=== PATIENT | male | born 1945 | race Caucasian/White ===

== ENCOUNTER 2019-01-02 10:39 | Inpatient (IN) ==
[2019-01-02 12:07] LABS: BASO# 0.03 X1000 (0.0-0.2); BASO% 0.2 % (0.0-0.8); HEMATOCRIT 44.3 % (42.0-52.0); HEMOGLOBIN 15.1 g/dL (14.0-18.0); IMM GRAN# 0.04 X1000 (0.0-0.04); IMM GRAN% 0.2 % (0.0-0.5); LYMPH# 1.49 X1000 (1.2-3.4); LYMPH% 7.9 % (20.5-51.1); MCH 29.5 PG (27-31); MCHC 34.1 g/dL (33-37); MCV 86.5 FL (81-99); MONO# 1.16 X1000 (0.11-0.59); MONO% 6.2 % (1.7-9.3); MPV 10.1 FL (7.4-10.4); NEUT% 85.5 % (42.2-75.2); PLT 411 X1000 (130-400); RBC 5.12 XMIL (4.7-6.1); RDW 13.5 % (11.5-14.5); WBC 18.82 X1000 (4.8-10.8)
[2019-01-02 13:11] LABS: AGAP 11; ALB/GLOB RATIO 1.5; ALBUMIN 4.4 g/dL (3.5-5.0); ALKALINE PHOSPHATASE 60 U/L (32-122); AMYLASE 1975 U/L (20-200); BUN 12 mg/dL (8-22); CHLORIDE 101 mmol/L (98-107); COSMO 277; ESTIMATED GFR > 60; GLUCOSE 126 mg/dL (70-104); GOT 15 U/L (10-34); GPT 11 U/L (10-44); LIPASE 1241 U/L (13-60); POTASSIUM 4.2 mmol/L (3.5-5.1); SODIUM 138 mmol/L (136-145); TCO2 26 mmol/L (25-35); TOTAL BILIRUBIN 0.76 mg/dL (0.20-1.00); TOTAL PROTEIN 7.4 g/dL (6.3-8.3)
[2019-01-02 14:56] LABS: URINE SOURCE CLEAN CATCH
[2019-01-02 15:01] LABS: BILIRUBIN URINE NEGATIVE (NEGATIVE); BLOOD URINE TRACE (NEGATIVE); COLOR YELLOW; GLUCOSE URINE TRACE mg/dL (NEGATIVE); KETONE URINE NEGATIVE (NEGATIVE); LEUKOCYTES URINE NEGATIVE (NEGATIVE); NITRITE URINE NEGATIVE (NEGATIVE); PROTEIN URINE 100 mg/dL (NEGATIVE); SP GRAVITY URINE 1.031; TURBIDITY URINE CLEAR (CLEAR); UR EPITHELIAL CELLS <10 /HPF (<10); URINE BACTERIA NEGATIVE /HPF; URINE RBC <10 /HPF (<10); URINE WBC <10 /HPF (<10); UROBILINOGEN URINE NORMAL (NORMAL)
[2019-01-02] MEDS ORDERED: ZOFRAN IV ONE (15:01)
[2019-01-02] MEDS ORDERED: NS 1,000 ML IV ONE (15:01)
[2019-01-02] MEDS ORDERED: MORPHINE IV ONE (15:07)
--- NOTE | 2019-01-02 15:09 | PROVIDER DOCUMENTATION ---
HPI-Abdominal Pain/GI Problem - General Chief Complaint: Nausea/Vomiting Stated Complaint: UPPER ABD PAIN,VOMITING,HEART STENTS Time Seen by Provider: 01/02/19 15:01 Source: patient Allergies/Adverse Reactions: Patient Allergies Allergy/AdvReac Type Severity Reaction Status Date / Time No Known Allergies Allergy Verified 02/22/14 20:15 Home Medications: Home Medication List Medication Instructions Recorded Confirmed Last Taken Type Amlodipine Besylate [Norvasc] 10 mg PO DAILY 02/22/14 02/19/15 02/19/15 08:00 History Aspirin 81 mg PO DAILY 02/22/14 02/19/15 02/19/15 08:00 History Clopidogrel Bisulfate [Plavix] 75 mg PO DAILY 02/22/14 02/19/15 02/19/15 08:00 History Metoprolol Succinate 25 mg PO DAILY 02/22/14 02/19/15 02/19/15 08:00 History Nitroglycerin Sl [Nitroglycerin] 0.4 mg SL PRN PRN 02/22/14 02/19/15 Unknown History Pantoprazole Sodium [Protonix] 40 mg PO DAILY 02/22/14 02/19/15 02/19/15 08:00 History Atorvastatin Calcium [Lipitor] 20 mg PO DAILY #0 07/19/14 02/19/15 02/19/15 08:00 Rx Hydrocodone/APAP 7.5 mg/325 mg 1 each PO Q4H PRN PRN #11 tablet 02/23/15 Unknown Rx [[place]-7.5] LISINOpril [Prinivil] 10 mg PO DAILY #30 tablet 02/23/15 Unknown Rx Ondansetron HCl [Zofran] 4 mg PO Q4H PRN PRN #15 tablet 02/23/15 Unknown Rx Acetaminophen with Codeine 1 ea PO Q8H PRN PRN #10 tab 08/13/17 Unknown Rx [Tylenol with Codeine #3] - History of Present Illness-ABD Nature of Presenting Problems: HPI: Pt reports to ED with 3 days of nausea, and severe abdominal pain, LUQ, rad to epigastric area. has history of pamcreatitis. he states he has not been able to eat since thursday. when he tried to drink today he immediately threw up. Abdominal Pain Onset Location: reports: LUQ Pain Radiation: reports: epigastric Quality of Pain: reports: aching, burning, cramping, pressure, sharp Severity in ED: reports: moderate Onset/Duration: reports: 3 days ago Timing: reports: still present Activities at Onset: reports: none Exposure to sick contacts?: Yes Modifying Factors: improves with: analgesics Associated Symptoms: reports: fatigue, fever/chills, nausea, vomiting Last BM: unsure # of Vomiting Episodes: 1 Bruising or Bleeding Gums?: No Similar Symptoms Previously?: No Recently seen or treated by another doctor?: No Review of Systems - Adult - REVIEW OF SYSTEMS - ADULT Constitutional: reports: no symptoms reported Eyes: reports: no symptoms reported Ears, Nose, Mouth & Throat: reports: no symptoms reported Cardiovascular: reports: no symptoms reported Respiratory: reports: no symptoms reported Gastrointestinal: reports: see HPI Genitourinary: reports: no symptoms reported Musculoskeletal: reports: no symptoms reported Integumentary: reports: no symptoms reported Neurological: reports: no symptoms reported Psychiatric: reports: no symptoms reported Endocrine: reports: no symptoms reported Hematologic/Lymphatic: reports: no symptoms reported Allergic/Immunologic: reports: no symptoms reported All Other Systems: Reviewed and Negative Past History - Adult - PAST MEDICAL HISTORY-ADULT Review of Records: reports: Old Records Reviewed, Nursing Assessment Review, Medications Reviewed, Social history reviewed & non-contributory. Major Childhood Illnesses: reports: denies history Cardiovascular: reports: HTN, hyperlipidemia, [place] Respiratory: reports: asthma Gastrointestinal: reports: GERD Obstetrical/Gynecological: reports: denies history Genitourinary: reports: prostate cancer (hx) Musculoskeletal: reports: denies history Neurological: reports: denies history Psychiatric: reports: denies history Endocrine/Immune: reports: denies history Other Conditions: reports: denies history - PRIOR SURGERIES/PROCEDURES Surgical/Procedure History: reports: cardiac stent, other (prostatectomy) - PRIOR HOSPITALIZATIONS Prior Hospitalizations: reports: none - IMMUNIZATION STATUS Childhood Immunizations: See Nurse Assessment Flu Vaccine: See Nurse Assessment - FAMILY HISTORY Family History: reviewed, not pertinent - SOCIAL HISTORY Smoking: non-smoker Substance Use: none/never Alcohol Use Frequency: never Living Situation: family Physical Exam-General - PHYSICAL EXAM-ADULT Initial Vital Signs Reviewed: Yes - CONSTITUTIONAL General Appearance: moderate distress - EYES Eyes: PERRL/EOMI, pink conjunctivae - HEAD, EARS, NOSE, MOUTH & THROAT HENMT: normocephalic/atraumatic, moist mucous membranes - NECK Neck: non-tender, full range of motion, supple - RESPIRATORY Respiratory: chest non-tender, lungs clear, normal breath sounds, no pleuratic chest pain. negative: crackles, rales, rhonchi, stridor, wheezing - CARDIOVASCULAR Cardiovascular: normal peripheral pulses, regular rate, rhythm, no edema. negative: bradycardia, tachycardia - GASTROINTESTINAL (ABDOMEN) Abdominal Exam: normal bowel sounds, soft, tenderness. negative: non tender, guarding, rigid, rebound - LYMPHATIC Lymphatic: no adenopathy, axilla node tender - MUSCULOSKELETAL Back Exam: normal inspection, no CVA tenderness Extremity: normal range of motion, non-tender, normal gait, normal inspection Peripheral Pulses: radial (R): 2+, radial (L): 2+, dorsalis-pedis (R): 2+, dorsalis-pedis (L): 2+ - SKIN Integumentary: normal color, normal turgor, warm/dry - NEUROLOGIC Neurologic: grossly normal - PSYCHIATRIC Psych/Mental Status: normal mood/affect, normal thought content, normal thought process, oriented x 3 Progress - PLAN OF CARE/RESULTS Progress/Plan/Lab Results: Vital Signs - 8 hr 01/02/19 11:17 01/02/19 13:41 Temperature 98.9 F 98.0 F Pulse Rate 79 84 Respiratory Rate 18 18 Blood Pressure 107/64 138/78 O2 Sat by Pulse Oximetry 96 98 Laboratory Results - last 24 hr 01/02/19 01/02/19 01/02/19 11:37 11:37 14:46 WBC 18.82 H RBC 5.12 Hgb 15.1 Hct 44.3 MCV 86.5 MCH 29.5 MCHC 34.1 RDW Std Deviation 13.5 Plt Count 411 H MPV 10.1 Immature Gran % (Auto) 0.2 Neut % (Auto) 85.5 H Lymph % (Auto) 7.9 L [place] % (Auto) 6.2 Eos % (Auto) 0.0 Baso % (Auto) 0.2 Immature Gran # (Auto) 0.04 Neut # (Auto) 16.10 H Lymph # (Auto) 1.49 [place] # (Auto) 1.16 H Eos # (Auto) 0.00 Baso # (Auto) 0.03 Sodium 138 Potassium 4.2 Chloride 101 Carbon Dioxide 26 Anion Gap 11 BUN 12 Creatinine 1.0 Estimated GFR/1.73 m2 > 60 BUN/Creatinine Ratio 12 Glucose 126 H Calculated Osmolality 277 Calcium 9.0 Total Bilirubin 0.76 AST 15 ALT 11 Alkaline Phosphatase 60 Total Protein 7.4 Albumin 4.4 Globulin 3.0 Albumin/Globulin Ratio 1.5 Amylase 1975 H Lipase 1241 H Urine Source CLEAN CATCH Urine Color YELLOW Urine Turbidity CLEAR Urine pH 6.0 Ur Specific [place] 1.031 Urine Protein 100 A Ur Glucose (Stick) TRACE Ur Ketones (Stick) NEGATIVE Urine Blood TRACE A Urine Nitrite NEGATIVE Urine Bilirubin NEGATIVE Urobilinogen Dipstick NORMAL Urine Leukocytes NEGATIVE Urine WBC (Auto) <10 Urine RBC (Auto) <10 U Epithel Cells (Auto) <10 Urine Bacteria (Auto) NEGATIVE Orders Category Date Time Status Saline Loc DIRECTED Care 01/02/19 11:32 Active NPO Diet 01/02/19 11:32 Active AMYLASE [CHEM] Stat Lab 01/02/19 11:37 Completed CBC WITH ELECTRONIC DIFF [HEME] Stat Lab 01/02/19 11:37 Completed COMPREHENSIVE METABOLIC PANEL [CHEM] Stat Lab 01/02/19 11:37 Completed LIPASE [CHEM] Stat Lab 01/02/19 11:37 Completed URINALYSIS W/POSS RFLX CULT [URINALYSIS] Stat Lab 01/02/19 14:46 Completed Morphine Med 01/02/19 15:07 Once 4 mg IV NOW ONE Ns 1000 ml IV Bolus X1 Med 01/02/19 15:01 Ordered 0.9% Sodium Chloride Inj [Ns] 1,000 ml IV 999 mls/hr Ondansetron [Zofran] Med 01/02/19 15:01 Once 4 mg IV NOW ONE A/P: Pancreatitis. elevated Lipase, not able to tolerate PO intake 3 days. LUQ abdominal pain. elevated WBC. admitted to Dr Katz Result Diagrams: 01/02/19 11:37 01/02/19 11:37 - CONSULTS/PCP/HOSPITALIST Notification #1 *Consult/PCP/Hospitalist*: Dr katz Time Discussed: 15:16 Consult Disposition: Admit Departure - Departure Date of Disposition Decision: 01/02/19 Time of Disposition Decision: 15:16 DIAGNOSIS: Pancreatitis Disposition: ADMITTED INPATIENT Certified Medical Emergency: Emergent Condition: Stable Additional Freetext Instructions: ED Follow Up Instructions: You have been treated by a care provider in the Emergency Department. These instructions are being provided to you so you can have an understanding of how to care for yourself upon discharge. Upon discharge from the Emergency Department, you are responsible for making arrangements for follow-up care by a physician of your choice. Take all prescribed medications as directed. Return to the Emergency Department immediately for any new or worsening symptoms. You may call the Physician Referral phone number at [phone] to obtain a list of Physicians who are taking new patients. Referrals and Follow-Ups: Gurvinder Galindo MD [Primary Care Provider] - - Critical Care Note This patient required my direct & personal management of CC.: No Attestation - Physician/ SILVA Attestation Patient care was provided by Advanced Practice Provider:: No The physician spent face to face time with patient:: Yes Advanced Practice Provider documentation review:: Supervising physician onsite and consulted in the evaluation and care of this patient. The physician did have a face to face encounter with the patient.
[2019-01-02 16:03] LABS: CK INDEX 0.3 (0.0-2.5); CK-MB 1.21 ng/mL (0.0-5.0)
[2019-01-02] MEDS ORDERED: MORPHINE IV PRN (16:43)
[2019-01-02] MEDS ORDERED: ZOFRAN IV PRN (16:43)
[2019-01-02] MEDS ORDERED: NORCO-7.5 PO PRN (16:43)
[2019-01-02] MEDS ORDERED: PHENERGAN PR PRN (16:43)
--- NOTE | 2019-01-02 17:58 | HISTORY AND PHYSICAL ---
I admitted this patient for Dr. Katz. PRIMARY CARE PHYSICIAN: Gurvinder Galindo MD CHIEF COMPLAINTS: Abdominal pain with nausea and vomiting. HISTORY OF PRESENT ILLNESS: This is a 73-year-old male who presents to the ER today. He is lying in the ER stretcher with complaints of mild abdominal pain to the right side. The patient states that yesterday morning about 3 or 4 a.m. he woke up with pain across his abdomen. States he has had this pain in the past. He has had 3 episodes of pancreatitis and this was the same pain he has had those times. The patient states he has not ate since Thursday. States that he did try to drink a small amount of madie linda last night and that he vomited at that time. That is the only thing he has had since Thursday. The patient is positive for tenderness and pain to the right abdominal wall. Bowel sounds are present. Lungs sounds are clear. Denies any nausea at this present time. Denies any blood in the stool or any blood when vomiting. Denies any dizziness. Denies any shortness of breath at this time. LABORATORY FINDINGS IN THE ER: Showed a creatine kinase of 471, amylase of 1975, and a lipase of 1241. The patient states that he has had a history of pancreatitis in the past. Looking through the medical record, there was a notable discharge on 02/23/2015 when patient was admitted for pancreatitis. There is an abdominal x-ray that was done on 07/14/2014 that showed another episode of pancreatitis in the abdomen. The MD on the 02/23/2015 admission, thought that the pancreatitis was due to the patient being on hydrochlorothiazide and lisinopril. The medication was stopped at that time. The patient states he has not received this medication since that admission and has not had any symptoms of pancreatitis until this time. The patient states he has not been started on any new medications. There are no other acute findings at this time. PAST MEDICAL HISTORY: Includes prostate cancer, AR, coronary artery disease, hyperlipidemia, hypertension, and pancreatitis x3 times. PAST SURGICAL HISTORY: Includes a prostatectomy in 2012 and AR with stents in 2009, a carotid endarterectomy in 2018. FAMILY HISTORY: Includes a father had prostate and bladder cancer. He is and from heart problems. Mother has history of bladder cancer also and is still living. SOCIAL HISTORY: The patient lives in [place] with his spouse of greater than 50 years. He denies any smoking, alcohol abuse, or illicit drug abuse. ALLERGIES: Lisinopril, hydrochlorothiazide. MEDICATIONS: Norvasc 10 mg p.o. daily, Lasix 20 mg p.o. daily, Protonix 40 mg p.o. daily, Flomax 0.4 mg p.o. daily, Ambien 10 mg p.o. at bedtime, Lipitor 20 mg p.o. daily, Plavix 75 mg p.o. daily, metoprolol succinate 25 mg p.o. daily. LABS AND DIAGNOSTICS: White blood cell count 18.8, platelet count 411,000, hemoglobin 15.1, hematocrit 44.3. Sodium 138, potassium 4.2, BUN 12, creatinine 1, GFR greater than 60, glucose 126, calcium 9.0, bilirubin 0.76, AST 15, ALT 11, alkaline phosphatase 60, creatine kinase 471, troponin less than 0.01. Triglycerides 88. Amylase 1975, lipase 1241. Urinalysis is negative. Plasma ethanol alcohol level negative. REVIEW OF SYSTEMS: A 14 point review of systems was performed. All are negative except what is stated above in HPI. PHYSICAL EXAM: VITAL SIGNS: Temperature 98 degrees, pulse rate 84, respiratory rate 18, blood pressure 138/78. Sat 98% on room air. Weight 182, height 5 feet 8 inches. GENERAL: This is a 73-year-old male who is in no acute distress at present time. He is well nourished and well developed. Awake, alert, oriented, able to answer all questions appropriately, lying in the ER stretcher. HEENT: Atraumatic, normocephalic. Pupils equal, round, reactive to light. Mucous membranes are dry. No dentition noted. NECK: Supple. No lymphadenopathy. Trachea is midline. No JVD. CV: Regular rate and rhythm. No murmurs, gallops, or rubs appreciated. RESPIRATORY: Lungs are clear. Equal chest expansion. Respirations are nonlabored with no accessory muscle usage. GI: Soft, but tender to the right quadrant, nondistended. Bowel sounds are present. NEURO: The patient is awake, alert, oriented. No focal deficits noted. Able to follow all commands appropriately. Sensation is present. Cranial nerves intact. MUSCULOSKELETAL: The patient has full range of motion. No deformities or abnormalities. EXTREMITIES: No clubbing or cyanosis. No edema. DP, PT pulses are present. SKIN: Warm, dry, and intact. No bruises or rashes noted. ASSESSMENT: 1. Pancreatitis. 2. Coronary artery disease. 3. Hypertension. 4. Hyperlipidemia. 5. Leukocytosis. PLAN: We will admit this patient to the medical floor. We will do an MRCP in the morning and a KUB in the morning. Obtain a.m. labs. Start this patient on IV fluid hydration, morphine p.r.n. for pain control. Home medications resumed. Zofran p.r.n. for nausea. Dictated by RENNY Gong for Tony Katz MD cc: MD Gurvinder Muller MD agree with above. the following is my own face to face assessment. Patient with acute pancreatitis of uncertain etiology. patient and family deny alcohol. previous episode thought to be medication related but no longer on any suspect medications. no elevations in bili/lfts/alk phos to suggest biliary issue. ? auto-immune or pancreatic divisum. will get MRCP in the morning to eval for anatomic issues. otherwise treat symptomatically. MTDD
[2019-01-02] MEDS: NS 1,000 ML IV SCH (18:20)
[2019-01-02] MEDS: LOVENOX SUBQ SCH (18:20)
[2019-01-03] MEDS: NS 1,000 ML IV SCH ×2 (03:34→16:08)
[2019-01-03 06:20] LABS: BASO# 0.03 X1000 (0.0-0.2); BASO% 0.2 % (0.0-0.8); EOS# 0.01 X1000 (0.0-0.7); EOS% 0.1 % (0.0-10.0); HEMATOCRIT 39.9 % (42.0-52.0); HEMOGLOBIN 13.1 g/dL (14.0-18.0); IMM GRAN# 0.05 X1000 (0.0-0.04); IMM GRAN% 0.3 % (0.0-0.5); LYMPH# 1.54 X1000 (1.2-3.4); LYMPH% 10.1 % (20.5-51.1); MCH 29.4 PG (27-31); MCHC 32.8 g/dL (33-37); MCV 89.7 FL (81-99); MONO% 8.5 % (1.7-9.3); MPV 10.2 FL (7.4-10.4); NEUT# 12.37 X1000 (1.4-6.5); NEUT% 80.8 % (42.2-75.2); PLT 325 X1000 (130-400); RBC 4.45 XMIL (4.7-6.1); RDW 13.4 % (11.5-14.5)
[2019-01-03] MEDS: PROTONIX PO SCH (06:41)
[2019-01-03 06:47] LABS: AGAP 8; ALB/GLOB RATIO 1.3; ALBUMIN 3.4 g/dL (3.5-5.0); ALKALINE PHOSPHATASE 48 U/L (32-122); BUN 12 mg/dL (8-22); CALCIUM 8.3 mg/dL (8.8-10.2); CHLORIDE 104 mmol/L (98-107); COSMO 275; CREATININE 0.9 mg/dL (0.7-1.2); ESTIMATED GFR > 60; GLUCOSE 87 mg/dL (70-104); GOT 11 U/L (10-34); GPT 7 U/L (10-44); POTASSIUM 4.1 mmol/L (3.5-5.1); SODIUM 138 mmol/L (136-145); TCO2 26 mmol/L (25-35); TOTAL BILIRUBIN 1.15 mg/dL (0.20-1.00)
--- NOTE | 2019-01-03 07:32 | Diag Imaging Result Doc PS360 ---
EXAM: KUB ABDOMEN INDICATION: abdominal pain, pancreatitis, rule out free air TECHNIQUE: One view COMPARISON: 02/22/2015 FINDINGS: There are unremarkable bowel gas and stool patterns. There is no obstructive bowel pattern. There is no evidence of large volume free abdominal gas given the limitations of a single supine radiograph. There is no evidence of organomegaly. Multiple metallic clips projecting over the pelvis. IMPRESSION: No evidence of acute pathology by plain radiograph. Electronically signed by Waldemar Delcid 01/03/2019 7:30 AM
[2019-01-03] MEDS: TYLENOL PO PRN (07:53)
[2019-01-03] MEDS: TOPROL XL PO SCH (09:29)
[2019-01-03] MEDS: PLAVIX PO SCH (09:29)
[2019-01-03] MEDS: ASPIRIN PO SCH (09:29)
[2019-01-03] MEDS: LOVENOX SUBQ SCH (16:08)
--- NOTE | 2019-01-03 16:19 | PROGRESS NOTE ---
DATE: 01/03/2019 INTERVAL HISTORY: Patient still some mild nausea and abdominal pain, but significantly improved from previous. No vomiting this morning. Some increase in appetite. Afebrile. No other complaints noted. No acute events overnight. REVIEW OF SYSTEMS: A 12 point review of systems negative except as per Interval History. LABORATORY: WBC 3, hemoglobin 13.1, hematocrit 39.9, platelets 325,000. Sodium 138, potassium 4.1, bicarb 26, BUN 12, creatinine 0.9, glucose 87, total bilirubin 1.15, AST 11, ALT 7, alkaline phosphatase 48, total protein 6, albumin 3.4. VITALS: T-max 98.9, pulse 81, respirations 18, blood pressure 144/67. O2 sat 94% on room air. PHYSICAL EXAMINATION: General: No acute distress. Vitals: As above. HEENT: Atraumatic. Moist mucous membranes. Neck: No cervical adenopathy. Cardiovascular: Regular rate and rhythm. No murmurs, rubs or gallops noted. Pulmonary: Clear to auscultation bilaterally. No wheezing, rales or rhonchi. Abdomen: Soft. Minimal epigastric tenderness, improved from previous. No rebound or guarding. Bowel sounds positive. Extremities: Peripheral pulses intact. No clubbing or cyanosis. Neurologic: Cranial nerves grossly intact. No focal motor sensory deficits. Psychiatric: Normal mood and affect. Awake, alert and oriented. Skin: No new rashes or lesions identified. ASSESSMENT AND PLAN: 1. Acute pancreatitis with two previous bouts. Etiology uncertain, but appears to be improving. Patient with less pain and nausea, beginning to get appetite back. We will try him on clears. LFTs essentially normal aside from minimally elevated bilirubin, so low suspicion for any kind of obstruction. Triglycerides within normal limits. the patient and family both deny any alcohol intake. Checking MRCP to assess for pancreatic divisum or anatomic issues that could be causing his intermittent bouts of pancreatitis. Otherwise, continue treating symptomatically. 2. Coronary artery disease. Continue home aspirin and Plavix. 3. Hyperlipidemia. Continue statin. 4. Leukocytosis, likely because of patient's acute pancreatitis. 5. Hypertension. Holding home diuretic currently. Blood pressure beginning to have intermittent mild elevations. May start something if it becomes further elevated. 6. GERD, continue PPI. 7. BPH. Will restart home Flomax.
--- NOTE | 2019-01-03 19:01 | Diag Imaging Result Doc PS360 ---
MRI MRCP (ABD W/O CONTRAST) - 01/03/2019 INDICATION: pancreatitis TECHNIQUE: COMPARISON: None FINDINGS: There is pancreas divisum anatomy, with the main pancreatic duct emptying at the minor papilla. The common bile duct empties normally at the major papilla. There is no biliary dilation. Normal gallbladder. There is some faint edema around the pancreas particularly the body and tail. No drainable fluid collections. No mass or adenopathy. IMPRESSION: 1. Pancreas divisum anatomy. 2. Apparent pancreatitis. Electronically signed by Rob Graff 01/03/2019 6:58 PM
[2019-01-03] MEDS: LIPITOR PO SCH (20:42)
[2019-01-04] MEDS: PROTONIX PO SCH ×2 (05:45→07:17)
[2019-01-04] MEDS: NS 1,000 ML IV SCH ×3 (05:45→20:51)
[2019-01-04 06:12] LABS: BASO# 0.04 X1000 (0.0-0.2); BASO% 0.2 % (0.0-0.8); EOS# 0.03 X1000 (0.0-0.7); EOS% 0.2 % (0.0-10.0); HEMOGLOBIN 13.1 g/dL (14.0-18.0); IMM GRAN# 0.06 X1000 (0.0-0.04); IMM GRAN% 0.4 % (0.0-0.5); LYMPH# 1.95 X1000 (1.2-3.4); LYMPH% 11.4 % (20.5-51.1); MCHC 32.8 g/dL (33-37); MCV 88.5 FL (81-99); MONO# 1.26 X1000 (0.11-0.59); MONO% 7.4 % (1.7-9.3); MPV 10.5 FL (7.4-10.4); NEUT# 13.75 X1000 (1.4-6.5); NEUT% 80.4 % (42.2-75.2); PLT 324 X1000 (130-400); RBC 4.52 XMIL (4.7-6.1); RDW 13.1 % (11.5-14.5); WBC 17.09 X1000 (4.8-10.8)
[2019-01-04 06:36] LABS: AGAP 11; ALB/GLOB RATIO 1.2; ALBUMIN 3.5 g/dL (3.5-5.0); ALKALINE PHOSPHATASE 50 U/L (32-122); BUN 10 mg/dL (8-22); CHLORIDE 104 mmol/L (98-107); COSMO 276; CREATININE 0.7 mg/dL (0.7-1.2); ESTIMATED GFR > 60; GLUCOSE 93 mg/dL (70-104); GOT 12 U/L (10-34); GPT 7 U/L (10-44); POTASSIUM 3.7 mmol/L (3.5-5.1); SODIUM 139 mmol/L (136-145); TCO2 24 mmol/L (25-35); TOTAL BILIRUBIN 1.21 mg/dL (0.20-1.00); TOTAL PROTEIN 6.4 g/dL (6.3-8.3)
[2019-01-04] MEDS: PLAVIX PO SCH (09:25)
[2019-01-04] MEDS: TOPROL XL PO SCH (09:25)
[2019-01-04] MEDS: FLOMAX PO SCH (09:25)
[2019-01-04] MEDS: ASPIRIN PO SCH (09:25)
--- NOTE | 2019-01-04 16:33 | PROGRESS NOTE ---
DATE: 01/04/2019 SUBJECTIVE: This patient's abdomen is still a little bit distended and he is still complaining of some abdominal pain mostly at the level of the right upper and right flank. I will request physical therapy to evaluate this patient and start working with him. This patient has been placed n.p.o. He has been having multiple bouts of pancreatitis. We did an MRCP that showed pancreas divisum anatomy and apparent pancreatitis. He does not drink alcohol. LFTs at this moment are good. Just a little bit of bilirubin at 1.2, triglyceride level 88. I discussed the case with the patient and the which was at the bedside. I told them about the pancreas divisum anatomy. They will need to follow up as an outpatient with Gastroenterology Department. I will try to set up an appointment with Dr. Maher. OBJECTIVE: Vital Signs: Temperature 98.8, pulse 70, respiratory rate 120. Blood pressure 130/50, oxygen saturation 97% on room air. HEENT: Head normocephalic. No trauma. PERRLA. Neck: Supple. No JVD. No masses. Central trachea. Chest: Clear to auscultation. No wheezing. No rales. Abdomen: Soft. Some right upper quadrant and right flank tenderness. His abdomen is a little bit distended, but positive bowel sounds. The patient also states that he is passing gas. Extremities: No edema, no clubbing. No cyanosis. Neurological: The patient is alert and oriented times x3. No focal deficits. LABORATORY: WBC 17, hemoglobin 13.1, hematocrit 40, platelets 324. Sodium 139, potassium 3.7, chloride 104, bicarbonate 24, BUN 11, creatinine 0.7, glucose 93, calcium 8. AST 12, ALT 7, alkaline phosphatase 50, bilirubin 1.2, albumin 3.5. ASSESSMENT AND PLAN: 1. Acute pancreatitis with 2 previous bouts. We did an MRCP that showed pancreatic divisum anatomy. He will need to follow up with Gastroenterology Department as an outpatient and probably he will need surgery for that problem, since I do not have any all other source of pancreatitis. No alcohol. Triglyceride level is normal. 2. Coronary artery disease, continue with aspirin and Plavix. 3. Hyperlipidemia, continue with statins. 4. Leukocytosis, likely secondary to this patient's pancreatitis, reactive. I checked back on his white blood cell counts and every time he came for pancreatitis, it was elevated. 5. Hypertension. Holding for now home diuretics. Blood pressure has been stable. 6. Gastroesophageal reflux disease, continue proton pump inhibitors. 7. Benign prostatic hypertrophy. Continue with tamsulosin. cc: Boston Vasquez MD
[2019-01-04] MEDS: TYLENOL PO PRN (18:35)
[2019-01-04] MEDS: LOVENOX SUBQ SCH (18:36)
[2019-01-04] MEDS: LIPITOR PO SCH (20:50)
[2019-01-05] MEDS: NS 1,000 ML IV SCH ×3 (04:00→10:29)
[2019-01-05] MEDS: PROTONIX PO SCH (06:37)
[2019-01-05] MEDS: TYLENOL PO PRN (06:42)
[2019-01-05 06:53] LABS: AGAP 11; ALB/GLOB RATIO 1.1; ALBUMIN 3.2 g/dL (3.5-5.0); ALKALINE PHOSPHATASE 54 U/L (32-122); BUN 11 mg/dL (8-22); CALCIUM 8.4 mg/dL (8.8-10.2); CHLORIDE 104 mmol/L (98-107); COSMO 274; CREATININE 0.7 mg/dL (0.7-1.2); ESTIMATED GFR > 60; GLUCOSE 87 mg/dL (70-104); GOT 11 U/L (10-34); GPT 6 U/L (10-44); POTASSIUM 3.9 mmol/L (3.5-5.1); SODIUM 138 mmol/L (136-145); TCO2 23 mmol/L (25-35); TOTAL PROTEIN 6.1 g/dL (6.3-8.3)
[2019-01-05 07:07] LABS: BASO# 0.04 X1000 (0.0-0.2); BASO% 0.3 % (0.0-0.8); EOS# 0.07 X1000 (0.0-0.7); EOS% 0.5 % (0.0-10.0); HEMATOCRIT 37.2 % (42.0-52.0); HEMOGLOBIN 12.5 g/dL (14.0-18.0); IMM GRAN# 0.02 X1000 (0.0-0.04); IMM GRAN% 0.2 % (0.0-0.5); LYMPH# 1.13 X1000 (1.2-3.4); LYMPH% 8.6 % (20.5-51.1); MCH 29.4 PG (27-31); MCHC 33.6 g/dL (33-37); MCV 87.5 FL (81-99); MONO# 0.99 X1000 (0.11-0.59); MONO% 7.5 % (1.7-9.3); MPV 10.7 FL (7.4-10.4); NEUT# 10.96 X1000 (1.4-6.5); NEUT% 82.9 % (42.2-75.2); PLT 322 X1000 (130-400); RBC 4.25 XMIL (4.7-6.1); RDW 12.6 % (11.5-14.5); WBC 13.21 X1000 (4.8-10.8)
[2019-01-05 07:30] LABS: AMYLASE 67 U/L (20-200); LIPASE 53 U/L (13-60)
[2019-01-05 07:43] VITALS: BP 142/60
[2019-01-05] MEDS: PLAVIX PO SCH (08:27)
[2019-01-05] MEDS: FLOMAX PO SCH (08:28)
[2019-01-05] MEDS: ASPIRIN PO SCH (08:28)
[2019-01-05] MEDS: TOPROL XL PO SCH (08:28)
--- NOTE | 2019-01-07 06:49 | DISCHARGE SUMMARY ---
ADMISSION DATE: 01/02/2019 DISCHARGE DATE: 01/05/2019 DISCHARGE DIAGNOSES: 1. Recurrent pancreatitis with an MRCP that showed pancreatic divisum anatomy. 2. History of coronary artery disease. 3. Hyperlipidemia. 4. Leukocytosis, likely secondary to this patient's pancreatitis. 5. Hypertension. 6. Gastroesophageal reflux disease. 7. BPH. PROCEDURES PERFORMED: 1. Abdominal x-ray dated 01/03/2019. Impression: No evidence of acute pathology by plain radiograph. 2. MRCP dated 01/03/2019. Impression: Pancreas divisum anatomy, apparent pancreatitis. HOSPITAL COURSE: A 73-year-old male with a past medical history of prostate cancer, [place], coronary artery disease, hyperlipidemia, hypertension, and pancreatitis x3, who presented to the emergency department with a chief complaint of abdominal pain to the right side. As per the patient, the day prior to admission he had a pain at about 3:00 or 4:00 in the morning, and he woke up with pain across his abdomen. He was admitted on 01/02/2019. As per the patient, he has had this kind of pain in the past with 3 episodes of pancreatitis. He has not been eating since Thursday, and he tried to drink a small amount of madie linda the previous night and he vomited. This is positive for tenderness and pain to the right abdominal wall. Positive bowel sounds. Lungs are clear. He denied nausea at that moment, but also he denied blood in the stool or any blood when vomiting. No dizziness. No shortness of breath. Laboratory showed an elevated amylase and lipase. Amylase was around 1975 and lipase 1241 with a WBC of 18.8. He was admitted with IV fluids, pain medication and nothing per mouth. An MRCP was done and showed a pancreatic divisum anatomy. I contacted Gastroenterology Department by phone and they have recommended to continue with the same treatment, and follow up with them as an outpatient Dr. Maher. The patient was improving on a daily basis. Yesterday in the morning, I started giving this patient a liquid diet and he tolerated that well. WBC is trending down, and the abdominal pain is gone. Then at noon, we advanced the diet. He has tolerated that as well so we decided to discharge this patient home. Also, his pancreatic enzymes normalized. He will need to follow up with Dr. Maher. We made an appointment for him on 01/21/2019 at 2:15 in the afternoon. Also, he needs to see his primary care doctor, Dr. Mateo Hollins on 01/12/2019 at 2:00 in the afternoon. At the moment of discharge, this patient was on a stable medical condition, tolerating p.o. and ambulating. PHYSICAL EXAMINATION: Vital Signs: Temperature 98.4 degrees, pulse 72, respiratory rate 22, blood pressure 142/60, and oxygen saturation 97% on room air. HEENT: Head normocephalic. No trauma. PERRLA. Neck: Supple. No JVD. No masses. Central trachea. Chest: Clear to auscultation. No wheezing. No rales. Abdomen: Soft, nontender, and nondistended. No hepatosplenomegaly. Extremities: No edema. No clubbing. No cyanosis. Neurological: The patient is alert and oriented x3. No focal neurological deficits. LABORATORY: WBC 13.2, hemoglobin 12.5, hematocrit 37.2, and platelets 322,000. Sodium 138, potassium 3.9, chloride 104, bicarbonate 23, BUN 11, creatinine 0.7, glucose 87, calcium 8.4, AST 11, ALT 6, alkaline phosphatase 54, albumin 3.2, amylase 67, and lipase 53. DISCHARGE MEDICATIONS: 1. Amlodipine 10 mg p.o. daily. 2. Aspirin 81 mg p.o. daily. 3. Lipitor 20 mg p.o. daily. 4. Plavix 75 mg p.o. daily. 5. Lasix 20 mg p.o. daily. 6. Metoprolol succinate 25 mg p.o. daily. 7. Protonix 40 mg p.o. daily. 8. Flomax 0.4 mg p.o. daily. 9. Ambien 10 mg p.o. at bedtime. TIME SPENT: Time discharging this patient 35 minutes. cc: Boston Vasquez MD
== END 2019-01-05 15:12 | disposition home or self-care (01) | DRG 440 ==
LOC: ED 10:39 → 4N 16:53 → SUATTDRO 16:53
PROVIDERS: ATTEND Internal Medicine
CPT/HCPCS: 74000; 74018; 74181; 80053; 80307; 80320; 81001; 82055; 82150; 82550; 82553; 83690; 84478; 84484; 85025; 93005; 96361; 96374; 96375; 97162; 99285; A9270; G0480; G6040; J1650; J2270; J2405; J7030

== ENCOUNTER 2019-04-21 12:29 | Inpatient (IN) ==
[2019-04-21] MEDS ORDERED: ZOFRAN ODT PO ONE (12:49)
[2019-04-21 13:11] LABS: BASO# 0.04 X1000 (0.0-0.2); BASO% 0.3 % (0.0-0.8); EOS# 0.02 X1000 (0.0-0.7); EOS% 0.1 % (0.0-10.0); HEMATOCRIT 41.2 % (42.0-52.0); HEMOGLOBIN 13.7 g/dL (14.0-18.0); IMM GRAN# 0.03 X1000 (0.0-0.04); IMM GRAN% 0.2 % (0.0-0.5); LYMPH# 1.38 X1000 (1.2-3.4); LYMPH% 9.9 % (20.5-51.1); MCH 29.1 PG (27-31); MCHC 33.3 g/dL (33-37); MCV 87.7 FL (81-99); MONO# 0.67 X1000 (0.11-0.59); MONO% 4.8 % (1.7-9.3); MPV 10.4 FL (7.4-10.4); NEUT# 11.78 X1000 (1.4-6.5); NEUT% 84.7 % (42.2-75.2); PLT 427 X1000 (130-400); RDW 13.3 % (11.5-14.5); WBC 13.92 X1000 (4.8-10.8)
[2019-04-21 13:29] LABS: AGAP 13; ALB/GLOB RATIO 1.4; ALBUMIN 4.3 g/dL (3.5-5.0); ALKALINE PHOSPHATASE 54 U/L (32-122); BUN 14 mg/dL (8-22); CALCIUM 9.3 mg/dL (8.8-10.2); CHLORIDE 103 mmol/L (98-107); COSMO 285; ESTIMATED GFR > 60; GLUCOSE 158 mg/dL (70-104); GOT 16 U/L (10-34); GPT 12 U/L (10-44); POTASSIUM 4.2 mmol/L (3.5-5.1); SODIUM 141 mmol/L (136-145); TCO2 25 mmol/L (25-35); TOTAL BILIRUBIN 0.51 mg/dL (0.20-1.00); TOTAL PROTEIN 7.3 g/dL (6.3-8.3)
[2019-04-21 13:42] LABS: AMYLASE 2845 U/L (20-200)
[2019-04-21 14:03] LABS: URINE SOURCE CLEAN CATCH
[2019-04-21 14:07] LABS: BILIRUBIN URINE NEGATIVE (NEGATIVE); BLOOD URINE NEGATIVE (NEGATIVE); COLOR YELLOW; GLUCOSE URINE NEGATIVE (NEGATIVE); KETONE URINE NEGATIVE (NEGATIVE); LEUKOCYTES URINE NEGATIVE (NEGATIVE); NITRITE URINE NEGATIVE (NEGATIVE); PH URINE 6.5; PROTEIN URINE TRACE mg/dL (NEGATIVE); SP GRAVITY URINE 1.024; TURBIDITY URINE CLEAR (CLEAR); UROBILINOGEN URINE NORMAL (NORMAL)
[2019-04-21 14:09] LABS: UR EPITHELIAL CELLS <10 /HPF (<10); URINE BACTERIA NEGATIVE /HPF; URINE RBC <10 /HPF (<10); URINE WBC <10 /HPF (<10)
[2019-04-21 14:19] LABS: LIPASE > 3000 U/L (13-60)
[2019-04-21] MEDS ORDERED: MORPHINE IV ONE (15:37)
[2019-04-21] MEDS ORDERED: NS 1,000 ML IV ONE (15:37)
[2019-04-21] MEDS ORDERED: ZOFRAN IV ONE (15:37)
--- NOTE | 2019-04-21 15:47 | PROVIDER DOCUMENTATION ---
HPI-Abdominal Pain/GI Problem - General Chief Complaint: Abdominal Pain Stated Complaint: FLANK PAIN Time Seen by Provider: 04/21/19 12:47 Source: patient Allergies/Adverse Reactions: Patient Allergies Allergy/AdvReac Type Severity Reaction Status Date / Time hydrochlorothiazide AdvReac Unknown Verified 04/21/19 18:31 lisinopril AdvReac Unknown Verified 04/21/19 18:31 Home Medications: Home Medication List Medication Instructions Recorded Confirmed Last Taken Type Amlodipine Besylate [Norvasc] 10 mg PO DAILY 02/22/14 04/21/19 12/31/18 History Clopidogrel Bisulfate [Plavix] 75 mg PO DAILY 02/22/14 04/21/19 04/21/19 06:00 History Metoprolol Succinate 25 mg PO DAILY 02/22/14 04/21/19 04/21/19 06:00 History Pantoprazole Sodium [Protonix] 40 mg PO DAILY 02/22/14 04/21/19 04/21/19 06:00 History Atorvastatin Calcium [Lipitor] 20 mg PO DAILY #0 07/19/14 04/21/19 04/21/19 06:00 Rx Aspirin 81 mg PO DAILY 01/02/19 04/21/19 04/21/19 06:00 History Furosemide [Lasix] 20 mg PO DAILY 01/02/19 04/21/19 04/21/19 06:00 History Tamsulosin [Flomax] 0.4 mg PO DAILY 01/02/19 04/21/19 04/21/19 06:00 History Zolpidem [Ambien] 10 mg PO QHS 01/02/19 04/21/19 04/20/19 22:00 History - History of Present Illness-ABD Nature of Presenting Problems: 74yom present to ER with c/o LUQ abd pain onset this morning. Pt has hx of chronic pancreatitis. Denies fever. Reports some nv. Pt nontoxic. Abdominal Pain Onset Location: reports: LUQ Pain Radiation: reports: no radiation Quality of Pain: reports: sharp Onset/Duration: reports: this morning Timing: reports: still present Associated Symptoms: reports: nausea, vomiting. denies: constipation, fever/chills, genitourinary problems, shortness of breath Emesis Description: reports: clear Review of Systems - Adult - REVIEW OF SYSTEMS - ADULT Constitutional: reports: no symptoms reported. denies: chills, fever Eyes: reports: no symptoms reported Ears, Nose, Mouth & Throat: reports: no symptoms reported Cardiovascular: reports: no symptoms reported. denies: chest pain Respiratory: reports: no symptoms reported. denies: shortness of breath Gastrointestinal: reports: see HPI, nausea, vomiting. denies: abdominal pain, diarrhea Genitourinary: reports: no symptoms reported. denies: dysuria, frequency Musculoskeletal: reports: no symptoms reported. denies: back pain Integumentary: reports: no symptoms reported Neurological: reports: no symptoms reported Psychiatric: reports: no symptoms reported Endocrine: reports: no symptoms reported Hematologic/Lymphatic: reports: no symptoms reported Allergic/Immunologic: reports: no symptoms reported All Other Systems: Reviewed and Negative Past History - Adult - PAST MEDICAL HISTORY-ADULT Review of Records: reports: Old Records Reviewed, Nursing Assessment Review, Medications Reviewed, Social history reviewed & non-contributory. Major Childhood Illnesses: reports: denies history Cardiovascular: reports: HTN, hyperlipidemia, PA Respiratory: reports: asthma Gastrointestinal: reports: GERD, pancreatitis Obstetrical/Gynecological: reports: denies history Genitourinary: reports: prostate cancer (hx) Musculoskeletal: reports: denies history Neurological: reports: denies history Psychiatric: reports: denies history Endocrine/Immune: reports: denies history Other Conditions: reports: denies history - PRIOR SURGERIES/PROCEDURES Surgical/Procedure History: reports: cardiac stent, other (prostatectomy) - PRIOR HOSPITALIZATIONS Prior Hospitalizations: reports: none - IMMUNIZATION STATUS Childhood Immunizations: See Nurse Assessment Flu Vaccine: See Nurse Assessment - FAMILY HISTORY Family History: reviewed, not pertinent Physical Exam-General - PHYSICAL EXAM-ADULT Initial Vital Signs Reviewed: Yes - CONSTITUTIONAL General Appearance: alert, mild distress - HEAD, EARS, NOSE, MOUTH & THROAT HENMT: moist mucous membranes - NECK Neck: full range of motion, supple, normal inspection - RESPIRATORY Respiratory: lungs clear, normal breath sounds, no respiratory distress, no a ccessory muscle use - CARDIOVASCULAR Cardiovascular: regular rate, rhythm - GASTROINTESTINAL (ABDOMEN) Abdominal Exam: normal bowel sounds, distended, tenderness (lUQ). negative: guarding, rigid, rebound - LYMPHATIC Lymphatic: no adenopathy - MUSCULOSKELETAL Back Exam: normal inspection, no CVA tenderness, no vertebral tenderness Extremity: normal range of motion, normal inspection - SKIN Integumentary: normal color, warm/dry. negative: diaphoresis, erythema, jaundice, pallor - NEUROLOGIC Neurologic: grossly normal - PSYCHIATRIC Psych/Mental Status: normal mood/affect, oriented x 3 Progress - PLAN OF CARE/RESULTS Progress/Plan/Lab Results: Vital Signs - 8 hr 04/21/19 12:45 04/21/19 14:14 Temperature 98.0 F 98.0 F Pulse Rate 66 68 Respiratory Rate 16 16 Blood Pressure 118/63 98/53 O2 Sat by Pulse Oximetry 96 96 Laboratory Results - last 24 hr 04/21/19 04/21/19 04/21/19 12:56 12:56 13:15 WBC 13.92 H RBC 4.70 Hgb 13.7 L Hct 41.2 L MCV 87.7 MCH 29.1 MCHC 33.3 RDW Std Deviation 13.3 Plt Count 427 H MPV 10.4 Immature Gran % (Auto) 0.2 Neut % (Auto) 84.7 H Lymph % (Auto) 9.9 L Cole % (Auto) 4.8 Eos % (Auto) 0.1 Baso % (Auto) 0.3 Immature Gran # (Auto) 0.03 Neut # (Auto) 11.78 H Lymph # (Auto) 1.38 Cole # (Auto) 0.67 H Eos # (Auto) 0.02 Baso # (Auto) 0.04 Sodium 141 Potassium 4.2 Chloride 103 Carbon Dioxide 25 Anion Gap 13 BUN 14 Creatinine 1.0 Estimated GFR/1.73 m2 > 60 BUN/Creatinine Ratio 14 Glucose 158 H Calculated Osmolality 285 Calcium 9.3 Total Bilirubin 0.51 AST 16 ALT 12 Alkaline Phosphatase 54 Total Protein 7.3 Albumin 4.3 Globulin 3.0 Albumin/Globulin Ratio 1.4 Amylase 2845 H Lipase > 3000 H Urine Source CLEAN CATCH Urine Color YELLOW Urine Turbidity CLEAR Urine pH 6.5 Ur Specific [place] 1.024 Urine Protein TRACE A Ur Glucose (Stick) NEGATIVE Ur Ketones (Stick) NEGATIVE Urine Blood NEGATIVE Urine Nitrite NEGATIVE Urine Bilirubin NEGATIVE Urobilinogen Dipstick NORMAL Urine Leukocytes NEGATIVE Urine WBC (Auto) <10 Urine RBC (Auto) <10 U Epithel Cells (Auto) <10 Urine Bacteria (Auto) NEGATIVE Orders Category Date Time Status AMYLASE [CHEM] Stat Lab 04/21/19 12:56 Completed CBC WITH DIFF [HEME] Stat Lab 04/21/19 12:56 Completed COMPREHENSIVE METABOLIC PANEL [CHEM] Stat Lab 04/21/19 12:56 Completed LIPASE [CHEM] Stat Lab 04/21/19 12:56 Completed URINALYSIS W/POSS RFLX CULT [URINALYSIS] Stat Lab 04/21/19 13:15 Completed 0.9% Sodium Chloride Inj [Ns] 1,000 ml Med 04/21/19 15:37 Active IV 999 mls/hr Morphine Med 04/21/19 15:37 Discontinued 4 mg IV NOW ONE Ondansetron Odt [Zofran Odt] Med 04/21/19 12:49 Discontinued 4 mg PO NOW ONE Ondansetron [Zofran] Med 04/21/19 15:37 Discontinued 4 mg IV NOW ONE Result Diagrams: 04/21/19 12:56 04/21/19 12:56 - CONSULTS/PCP/HOSPITALIST Notification #1 *Consult/PCP/Hospitalist*: RENNY Cooper Hospitalist Time Discussed: 15:52 Consult Disposition: Will see in ED, other Departure - Departure Date of Disposition Decision: 04/21/19 Time of Disposition Decision: 15:52 DIAGNOSIS: Pancreatitis Qualifiers: Chronicity: acute Pancreatitis type: unspecified pancreatitis type Acute pancreatitis complication: unspecified Qualified Code(s): K85.90 - Acute pancreatitis without necrosis or infection, unspecified Disposition: ADMITTED INPATIENT 09 Certified Medical Emergency: Emergent Condition: Stable - Critical Care Note This patient required my direct & personal management of CC.: No Attestation - Physician/ SILVA Attestation Patient care was provided by Advanced Practice Provider:: Yes Advanced Practice Provider:: Hortensia Laguna Advanced Practice Provider documentation review:: The Mid-level provider documentation, treatment plan and medical decision making was reviewed by the physician who agrees with all treatment and medical decision making by the MLP. The physician spent face to face time with patient:: No Advanced Practice Provider documentation review:: Supervising physician onsite and consulted in the evaluation and care of this patient. The physician did not have a face to face encounter with the patient.
--- NOTE | 2019-04-21 17:20 | HISTORY AND PHYSICAL ---
HISTORY OF PRESENT ILLNESS: Mr. Cotton is a 74-year-old, who this is his fourth episode, I think, in 4 years of pancreatitis. Started to develop abdominal pain early this morning and epigastric, but really right in the left upper quadrant. He was just here in December for pancreatitis. He had been diagnosed, I think, with pancreatic divisum, and they have checked out his gallbladder numerous times. Did not appear to have gallstones or cholecystitis. He is not a drinker. He has not changed his medication. PAST MEDICAL HISTORY: 1. Prostate cancer. 2. Myocardial infarction, coronary artery disease. 3. Hyperlipidemia. 4. Hypertension. 5. Pancreatitis, this the fourth episode. His last one was in December 2018. PAST SURGICAL HISTORY: Prostatectomy in 2012. He had coronary stents placed in 2009, carotid endarterectomy in 2018. FAMILY HISTORY: Father had prostate and bladder cancer. He from heart problems. History of bladder cancer, also. SOCIAL HISTORY: Patient lives in [place]. He has been with his spouse over 50 years. Denies any smoking, alcohol, or illicit drugs. ALLERGIES: Lisinopril, hydrochlorothiazide. REVIEW OF SYSTEMS: General: No weight gain or loss. No fever or chills. HEENT: Unremarkable. No change in visual or hearing acuity. Respiratory: No increased work of breathing or dyspnea. Cardiovascular: No chest pain or tachy palpitation Gastrointestinal/genitourinary: No gross hematuria or dysuria. Musculoskeletal/Neurologic: No significant complaints. Endocrinologic/Hematologic: No significant history. PHYSICAL EXAMINATION: VITAL SIGNS: Temperature 98.0 degrees, pulse 68, respirations 16, blood pressure 98/53. HEENT: Pupils are equal and round. LUNGS: Clear in all lung sparks. His O2 saturation is 96, breathing comfortably. CARDIOVASCULAR: Regular rhythm and rate without murmur or S3. ABDOMEN: Soft, but he is tender in the epigastrium, left and right upper quadrants as well. No rebound tenderness. More prominent pain in the left upper quadrant. Abdomen otherwise unremarkable. VASCULAR: No distended neck veins. Carotid, radial, and femoral pulses 2+ and symmetrical. EXTREMITIES: Without clubbing, cyanosis, or edema. SKIN: Warm and dry. No rashes. NECK: Supple. No cervical adenopathy or supraclavicular adenopathy. LABORATORY DATA: White count 13,920, hematocrit is 41, platelet count 427,000. Sodium 141, potassium 4.2, chloride 103, BUN 14, creatinine 1.0, blood sugar 158. AST 15, ALT is 12, alkaline phosphatase 54, albumin is 4.3. Urinalysis unremarkable. His amylase was 2845, lipase was greater than 3000. ASSESSMENT AND PLAN: 1. Acute pancreatitis. This is the fourth episode. He apparently has been diagnosed in the past with a divided pancreatic duct or pancreatic divisum. I am going to ask Surgery and GI to render an opinion again. I do not know if empiric cholecystectomy would be something we would pursue. His MRCP done on 01/03/2019, showed pancreas divisum anatomy, apparent pancreatitis at that time as well. We will hold him NPO, give him some IV fluids, and antiemetics if needed. 2. History of coronary artery disease with stents placed. No sign of active cardiac ischemia. We will check troponin and CK. 3. History of prostate cancer, status post prostatectomy in 2013. 4. Hyperlipidemia. 5. Hypertension. cc: Car Casey MD
[2019-04-21] MEDS ORDERED: MORPHINE IV PRN (19:48)
[2019-04-21] MEDS ORDERED: ZOFRAN IV PRN (19:48)
[2019-04-21] MEDS: NS 1,000 ML IV SCH (23:29)
[2019-04-22 07:03] LABS: BASO# 0.03 X1000 (0.0-0.2); BASO% 0.2 % (0.0-0.8); EOS# 0.02 X1000 (0.0-0.7); EOS% 0.2 % (0.0-10.0); HEMATOCRIT 38.3 % (42.0-52.0); HEMOGLOBIN 12.5 g/dL (14.0-18.0); IMM GRAN# 0.03 X1000 (0.0-0.04); IMM GRAN% 0.2 % (0.0-0.5); LYMPH# 1.17 X1000 (1.2-3.4); LYMPH% 9.2 % (20.5-51.1); MCH 29.1 PG (27-31); MCHC 32.6 g/dL (33-37); MCV 89.1 FL (81-99); MONO# 0.78 X1000 (0.11-0.59); MONO% 6.1 % (1.7-9.3); MPV 10.6 FL (7.4-10.4); NEUT# 10.75 X1000 (1.4-6.5); NEUT% 84.1 % (42.2-75.2); PLT 341 X1000 (130-400); RDW 13.2 % (11.5-14.5); WBC 12.78 X1000 (4.8-10.8)
[2019-04-22 07:23] LABS: AMYLASE 1170 U/L (20-200)
[2019-04-22 07:33] LABS: AGAP 10; ALB/GLOB RATIO 1.6; ALBUMIN 3.9 g/dL (3.5-5.0); ALKALINE PHOSPHATASE 46 U/L (32-122); BUN 13 mg/dL (8-22); CALCIUM 8.8 mg/dL (8.8-10.2); CHLORIDE 103 mmol/L (98-107); COSMO 279; CREATININE 0.9 mg/dL (0.7-1.2); ESTIMATED GFR > 60; GLUCOSE 114 mg/dL (70-104); GOT 15 U/L (10-34); GPT 10 U/L (10-44); POTASSIUM 4.1 mmol/L (3.5-5.1); SODIUM 139 mmol/L (136-145); TCO2 26 mmol/L (25-35); TOTAL BILIRUBIN 0.58 mg/dL (0.20-1.00); TOTAL PROTEIN 6.4 g/dL (6.3-8.3)
[2019-04-22 07:42] LABS: LIPASE 1311 U/L (13-60)
[2019-04-22] MEDS ORDERED: TYLENOL PO PRN (11:34)
[2019-04-22] MEDS: NS 1,000 ML IV SCH (11:58)
--- NOTE | 2019-04-22 13:35 | GENERAL SURGERY CONSULTATION ---
DATE: 04/22/2019 REQUESTING PHYSICIAN: Dr. Casey. REASON FOR CONSULTATION: Recurrent pancreatitis in the setting of pancreas divisum. HISTORY OF PRESENT ILLNESS: A 74-year-old gentleman with the 4th episode of pancreatitis in the last 4 years. He had abdominal pain and left upper quadrant pain. He has been previously admitted most recently in 12/2018 for pancreatitis. At that point, he had a workup that showed pancreatic divisum. No other etiology has been found. He is doing okay right now. He is having no major issues. I was asked to weigh an opinion. PAST MEDICAL HISTORY: 1. Prostate cancer. 2. PR. 3. Coronary artery disease. 4. Hyperlipidemia. 5. Hypertension. 6. History of pancreatitis with pancreatic divisum. PAST SURGICAL HISTORY: Prostatectomy, coronary artery stents, carotid endarterectomy. FAMILY HISTORY: Positive for prostate and bladder cancer. SOCIAL HISTORY: Lives in [place]. Denies alcohol, tobacco, or illicit drugs. ALLERGIES: Lisinopril and hydrochlorothiazide. HOME MEDICATIONS: Reviewed. REVIEW OF SYSTEMS: A full 14 systems reviewed and negative except as specified in HPI. PHYSICAL EXAMINATION: Vital Signs: Patient is currently afebrile. His vital signs are stable. General: No acute distress. HEENT: Normocephalic, atraumatic. Pupils equal, round, reactive to light. Mucous membranes moist. Oropharynx benign. Neck: Supple. Trachea midline. Cardiovascular: Regular rate and rhythm. Lungs: Grossly clear. Abdomen: Soft. Some minimal discomfort but no real peritoneal signs. Extremities: Moves all extremities. Neurologic: Grossly intact. Skin: No signs of jaundice. Vascular: All extremities perfused. LABORATORY: Reviewed. Of note, his lipase is trending down as is his amylase. Bilirubin, AST, ALT and alkaline phosphatase were all normal. ASSESSMENT AND PLAN: A 74-year-old gentleman with pancreatitis secondary to likely pancreatic divisum. Pancreatitis. At this time, I agree with GI consult. I have discussed with Dr. Maher, his normal GI doctor and may need to send him down to [place] to try to get a sphincterotomy of his minor sphincter. I would like to for this before we do any kind of major surgical intervention. But we would like him to get over his pancreatitis before any kind of intervention. We will monitor him while he is in the hospital. Continue to follow. I appreciate the consult. cc: Shahzad Culver MD
--- NOTE | 2019-04-22 14:27 | PROGRESS NOTE ---
DATE: 04/22/2019 SUBJECTIVE: Mr. Cotton' pain is about the same, maybe a little less. OBJECTIVE: Temperature is 98.1 degrees, pulse 76, respirations 20, blood pressure 122/56. Pupils are equal and round. Lungs are clear in all lung sparks. Cardiovascular: Regular rate without murmur or S3. Abdomen is soft. He does have tenderness in the epigastrium and really across the abdomen but right upper quadrant as well. ASSESSMENT AND PLAN: Discussed with Dr. Maher and Dr. Culver. The plan is to try and get him to [place] to get a sphincterotomy of his minor sphincter. Would like to do this before any kind of major surgical intervention is tried. He has had aggressive workup and appears that his pancreatitis is related to his pancreatic divisum. Will continue n.p.o., continue liquids and see if he clinically improves. cc: Car Casey MD
[2019-04-23] MEDS: NS 1,000 ML IV SCH ×4 (04:14→20:25)
--- NOTE | 2019-04-23 06:39 | GENERAL SURGERY PROGRESS NOTE ---
DATE: 04/23/2019 SUBJECTIVE: Patient seems to be doing well. His pain is decreased. OBJECTIVE: Vital Signs: Patient is currently afebrile. His vital signs stable. General: No acute distress. HEENT: Normocephalic, atraumatic. Pupils equal, round, reactive to light. Mucous membranes moist. Oropharynx benign. Neck: Supple. Trachea midline. Cardiovascular: Regular rate and rhythm. Lungs: Grossly clear. Abdomen: Soft. Less tender, less distended. Extremities: Moves all extremities. Neurologic: Grossly intact. Skin: No signs of jaundice. Vascular: All extremities perfused. LABORATORY: None this morning as of yet. ASSESSMENT AND PLAN: A 74-year-old gentleman with pancreatitis secondary to pancreas divisum. Pancreatitis at this time, he clinically seems to be improving. We will put him on a clear liquid diet. He will likely needs to go to [facility] for further evaluation for sphincterotomy by ERCP. cc: Shahzad Culver MD
--- NOTE | 2019-04-23 10:44 | PROGRESS NOTE ---
DATE: 04/23/2019 SUBJECTIVE: Mr. Cotton is feeling much better. He would like to try some soft food. Abdomen is much less tender. OBJECTIVE: Vital Signs: Temperature 97.7 degrees, pulse 77, respirations 20, blood pressure 131/64. Eyes: Pupils are equal and round. Lungs: Clear in all lung sparks. Cardiovascular exam: Regular rhythm and rate without murmur or S3. : Urine output is 3500 mL. ASSESSMENT AND PLAN: 1. Try to get him to see a specialist in [place] about getting a sphincterotomy and looking at the minor sphincter, but this is his fourth episode in a couple years. Dr. Culver and Dr. Maher are going to look for a referral. I am going to let him try soft diet today. He is getting normal saline 125 mL an hour. 2. Other medical history: History of prostate cancer. 3. Myocardial infarction and coronary artery disease. 4. Hyperlipidemia. 5. Hypertension. 6. Pancreatitis as mentioned above. Review of his orders: He is really on no medication. I think it would be worthwhile to check another lipid profile on him. He is getting Protonix at home and his Flomax, and he was taking Lasix at home. I think we can stop that. He is on Plavix. He was taking Lipitor 20 mg a day, aspirin 81 mg a day and Norvasc 10 mg a day. I think we can go back on those. cc: Car Casey MD
[2019-04-23] MEDS: AMBIEN PO SCH (20:25)
[2019-04-24] MEDS: NS 1,000 ML IV SCH ×3 (06:07→21:48)
[2019-04-24] MEDS: PROTONIX PO SCH (06:07)
--- NOTE | 2019-04-24 07:01 | GENERAL SURGERY PROGRESS NOTE ---
DATE: 04/24/2019 SUBJECTIVE: The patient is doing well. He tolerated a regular diet yesterday. No major issues. No increased pain. OBJECTIVE: Vital Signs: The patient is currently afebrile. His vital signs are stable. General: No acute distress. HEENT: Normocephalic, atraumatic. Pupils equal, round, reactive to light. Mucous membranes moist. Oropharynx benign. Neck: Supple. Trachea midline. Cardiovascular: Regular rate and rhythm. Lungs: Grossly clear. Abdomen: Soft. No real tenderness at this point. Extremities: Moves all extremities. Neurologic: Grossly intact. Skin: No signs of jaundice. Vascular: All extremities perfused. LABORATORY DATA: None this morning as of yet. ASSESSMENT AND PLAN: A 74-year-old gentleman with pancreatitis secondary to pancreas divisum. Pancreatitis. At this time, I think it is clinically resolved. I think it is probably okay for him to be discharged home pretty soon. I do think he needs to follow up in [place] to have an endoscopic procedure. cc: Shahzad Culver MD
--- NOTE | 2019-04-24 09:24 | PROGRESS NOTE ---
DATE: 04/24/2019 SUBJECTIVE: Mr. Cotton had a good night. He is actually eating regular food today, and pain is almost completely gone. OBJECTIVE: Vital Signs: Temperature 98.4 degrees, pulse 70, respirations 16, blood pressure 147/75. HEENT: Pupils are equal and round. Lungs: Clear in all lung sparks. Cardiovascular: Regular rhythm and rate without murmur or S3. Abdomen: Soft. Skin: Warm and dry. ASSESSMENT AND PLAN: This is a 74-year-old gentleman with pancreatitis and pancreas divisum. Will let him go home tomorrow. I would like for him to be set up to see a doctor about treatment in [place] (that is where he would like to go), so will discuss with Dr. Maher. cc: Car Casey MD
[2019-04-24] MEDS: ASPIRIN PO SCH (09:32)
[2019-04-24] MEDS: PLAVIX PO SCH (09:33)
[2019-04-24] MEDS: TOPROL XL PO SCH (09:33)
[2019-04-24] MEDS: NORVASC PO SCH (09:33)
[2019-04-24] MEDS: FLOMAX PO SCH (09:33)
[2019-04-24] MEDS ORDERED: LIPITOR PO SCH (21:00)
[2019-04-24] MEDS: AMBIEN PO SCH (21:48)
[2019-04-25] MEDS: NS 1,000 ML IV SCH ×2 (04:24→14:19)
[2019-04-25] MEDS: PROTONIX PO SCH (06:14)
--- NOTE | 2019-04-25 06:59 | GENERAL SURGERY PROGRESS NOTE ---
DATE: 04/25/2019 SUBJECTIVE: The patient seems to be doing okay. He is having no major issues. He is tolerating his diet. OBJECTIVE: Vital Signs: The patient is currently afebrile. Vital signs stable. General: No acute distress. HEENT: Normocephalic, atraumatic. Pupils equal, round, reactive to light. Mucous membranes moist. Oropharynx benign. Neck: Supple. Trachea midline. Cardiovascular: Regular rate and rhythm. Lungs: Grossly clear. Abdomen: Soft, nontender, nondistended. Extremities: Moves all extremities. Neurologic: Grossly intact. Skin: No signs of jaundice. Vascular: All extremities perfused. LABORATORY DATA: None this morning. ASSESSMENT AND PLAN: A 74-year-old with pancreatitis secondary to pancreas divisum. Pancreatitis. At this time, I think his pancreatitis is clinically resolved. At this point, he needs to follow up with [facility] to have the endoscopic procedure. Will follow while he is still in the hospital. cc: Shahzad Culver MD
[2019-04-25] MEDS: ASPIRIN PO SCH (08:12)
[2019-04-25] MEDS: FLOMAX PO SCH (08:12)
[2019-04-25] MEDS: TOPROL XL PO SCH (08:12)
[2019-04-25] MEDS: NORVASC PO SCH (08:12)
[2019-04-25] MEDS: PLAVIX PO SCH (08:12)
[2019-04-25] MEDS ORDERED: FLU VACCINE IM ONE (08:28)
[2019-04-25 11:11] VITALS: BP 132/63
[2019-04-25 13:30] LABS: AMYLASE 63 U/L (20-200); LIPASE 57 U/L (13-60)
--- NOTE | 2019-04-25 13:55 | DISCHARGE SUMMARY ---
ADMISSION DATE: 04/21/2019 DISCHARGE DATE: 04/25/2019 HISTORY OF PRESENT ILLNESS: This is a 74-year-old. This is his fourth episode, I believe, in 4 years of pancreatitis. He has had a complete workup. He has pancreatic divisum and so was admitted again with abdominal pain, elevated lipase and amylase, consistent with acute pancreatitis. PAST MEDICAL HISTORY: 1. Prostate cancer. 2. Myocardial infarction. 3. Coronary artery disease. 4. Hyperlipidemia. 5. Hypertension. 6. Pancreatitis. This is his fourth episode. His last one was in December of 2018. HOSPITAL COURSE: Admitted with acute pancreatitis. Kept him NPO. Able to advance his diet. Enzymes came down and he felt he could be discharged home. He has been set up to follow up with Dr. Maher. He will see Dr. Heath to set him up to see him at [facility]. I believe he will need a sphincterotomy of his minor papillary duct. He understands. He is anxious to go home. DISCHARGE MEDICATIONS: Will be Norvasc 10 mg a day, aspirin 81 mg a day, Lipitor 20 mg a day, Plavix 75 mg a day, Toprol-XL 25 mg a day, Protonix 40 mg a day, Ambien which he takes 10 mg at bedtime. cc: Car Casey MD
--- NOTE | 2019-04-25 16:16 | GASTROENTEROLOGY CONSULTATION ---
DATE: 04/25/2019 HISTORY OF PRESENT ILLNESS: Mr. Cotton was admitted to hospital on the 21 of April with sudden onset of abdominal pain associated with nausea and vomiting. On further evaluation, he was found to have elevated amylase and lipase suggestive of acute pancreatitis. This was his 4th episode of pancreatitis. Earlier the etiology was considered to be diuretics but he has been off of diuretics now. During his last admission apparently he had an MRCP done which did show pancreas divisum. The patient denied any fever or chills associated with abdominal pain, nausea, vomiting. He had not eaten anything that he could blame for his acute episode. He has not had any indigestion. Occasional heartburn but he has been doing well with Protonix for his heartburn. He had not had any diarrhea or constipation. Denied any blood or mucus in his stool. Has not had any hematemesis or coffee-ground emesis. He denied headache, dizziness, or double vision. Denies any earache, ear discharge, ringing in the ears. Has not had any chest pain, shortness of breath, or palpitations. Denies any cough, sputum, hemoptysis. Since admission, he was put to bowel rest and overall his symptoms have improved. He has been able to tolerate his GI soft diet. PAST MEDICAL HISTORY: Significant for hypertension, hyperlipidemia, history of coronary disease status post PTCA and stent placement x2, history of prostate cancer and status post prostatectomy. PAST SURGICAL HISTORY: He has had a prostatectomy for prostate cancer and PTCA and stent placement and carotid endarterectomy. MEDICATIONS: Prior to hospitalization, he has been on Norvasc, aspirin, Lipitor, Plavix, Lasix, metoprolol, Protonix, Flomax, and Ambien. ALLERGIES: He claims to be allergic to hydrochlorothiazide and lisinopril. SOCIAL HISTORY: He is . Lives with his family. Does not smoke. Does not drink. Does not use illicit drugs. FAMILY HISTORY: Noncontributory. REVIEW OF SYSTEMS: As per HPI, as above. PHYSICAL EXAMINATION: General: Very pleasant gentleman. He is sitting in bed, conscious, alert. Appears to be in no distress. Vital signs: Temperature was 98.1 degrees, pulse 62 per minute, breathing 18, blood pressure 132/63. He is 5 feet 8 inches tall. He is 173 pounds. HEENT: Head is atraumatic, normocephalic. Eyes: Conjunctivae normal. Sclerae anicteric. Nares are patent. No discharge. Mouth: Buccal mucosa is moist. Throat is normal. Neck: Supple. No lymphadenopathy, thyromegaly. Chest: Bilaterally symmetrical. It is moving with respirations. Breath sounds audible bilaterally. No rhonchi or crepitations could be heard. Heart: Audible. No murmur could be appreciated. Abdomen: Full, soft. It is nontender today. No mass or visceromegaly noted. Bowel sounds are audible. Extremities: No pedal edema, cyanosis, clubbing was noted. [employer]: Grossly intact. No sensory or motor deficit. LABORATORIES: Reviewed which showed WBC of 12.78. These labs were obtained on the 22 of April. Hemoglobin 12.5, hematocrit 38.4, MCV 89.1, platelets were 341,000. Sodium 139, potassium 4.1, chloride 103, bicarb is 26, BUN is 13, creatinine 0.9, glucose 114. His amylase on the was 1,170 and lipase was 1,311. No imaging was done. IMPRESSION: Acute pancreatitis. This is his 4th episode. He was noted to have pancreas divisum. Most likely that is the cause of his recurrent pancreatitis. He needs a papillotomy of his minor papilla. He is feeling better now. I think he has overcome his acute episode. His acute episode is resolved. He has gotten over is acute pancreatitis, but I would confirm the amylase and lipase have come down. But on the other hand, he is tolerating his diet well. He did well with is a GI soft diet. For his papillotomy of his minor papilla, he will be sent [place]. Arrangements will be made to see Dr. Heath for that. I have given him my card to call and make an appointment as an outpatient and those arrangements will be made. In the meantime, I advised him to avoid fatty food and continue the rest of his medication and follow up with me as an outpatient. cc: Sancho Maher MD
== END 2019-04-25 14:41 | disposition home or self-care (01) | DRG 440 ==
LOC: ED 12:29 → 4N 18:39
PROVIDERS: ATTEND Emergency Medicine